=== PATIENT | male | born 1975 | race Native Hawaiian/Other Pacific Islander ===

== ENCOUNTER 2022-01-14 12:16 | Emergency (ER) | payer SELFPAY ==
--- NOTE | 2022-01-14 12:26 | CRLHL7_ITS ---
For Patients: As a result of the Cures Act, medical imaging exams and procedure reports are released immediately into your electronic medical record. You may view this report before your referring provider. If you have questions, please contact your health care provider. HISTORY: Injury. TECHNIQUE: Three views of the right knee. COMPARISON: No prior. FINDINGS: There is no acute fracture. No joint space narrowing. No suprapatellar joint effusion. Mild spurring at the quadriceps attachment to the superior pole of the patella. No radiopaque foreign body or soft tissue gas. IMPRESSION: No fracture, malalignment or joint space narrowing. Dictated by Jan Lewis MD @ 01/14/2022 1:22:30 PM Dictated by: Jan Lewis MD @ 01/14/2022 13:22:33 (Electronically Signed)
[2022-01-14 12:37] VITALS: BP 122/87; PULSE 109; RESP 18; TEMP 36.3; O2SAT 97; BMI 34.9
--- NOTE | 2022-01-14 12:52 | ED.GENADULT ---
HPI - General Adult General Time Seen by Provider: 12:52 Date Seen: 01/14/22 Chief complaint: Back Injury/Pain Stated complaint: Work Comp injured RT knee in fall Time Seen by Provider: 01/14/22 12:25 Source: patient Mode of arrival: ambulatory Limitations: physical limitation History of Present Illness HPI narrative: Patient is a pleasant 38-year-old male who reports that he has had a history of lumbar disc repair in the past. He fell couple days ago work and has pain in his right low back down his leg down to his foot. He has not had any bowel or bladder changes, fever chills, perineal numbness. The patient has been on some type of anti-inflammatory in the past and that helped him. He has been ambulatory. He works at a construction job. He denies significant back pain but complains of pain in his posterior superior iliac spine area down to his leg. He is able ambulate without difficulty. Related Data Home Medications Medication Instructions Recorded Confirmed metformin 500 mg tablet 500 mg PO BID 01/14/22 01/14/22 Previous Rx's Medication Instructions Recorded prednisone 20 mg tablet 20 mg PO BID #10 tabs 01/14/22 Allergies Allergy/AdvReac Type Severity Reaction Status Date / Time No Known Drug Allergies Allergy Verified 01/14/22 12:41 Review of Systems Status of ROS: Reports: 6 or more systems reviewed and unremarkable except as noted in History and below Exam Narrative: Exam Narrative: Objective: Patient has a negative straight leg raise bilaterally, he is ambulatory, is able to heel-toe walk, he walks a slightly flexed position due to his back discomfort. He has got normal strength in the lower extremities bilaterally normal sensation, no palpable tenderness to his low back Const: Vital Signs, click to edit/add: Vital Signs - 24 hr 01/14/22 12:37 Temperature 97.3 F L Pulse Rate [Pulse Oximeter] 109 H Respiratory Rate 18 Blood Pressure [Ri ght Upper Arm] 122/87 Pulse Oximetry 97 Oxygen Delivery Me thod Room Air Course Vital Signs Vital signs: Initial Vital Signs Temperature 97.3 F L 01/14/22 12:37 Temperature Source Temporal Artery Scan 01/14/22 12:37 Pulse Rate 109 H 01/14/22 12:37 Respiratory Rate 18 01/14/22 12:37 Blood Pressure 122/87 01/14/22 12:37 Blood Pressure Mean 98 01/14/22 12:37 Blood Pressure Position Supine 01/14/22 12:37 Pulse Oximetry 97 01/14/22 12:37 Oxygen Delivery Method 01/14/22 12:37 Vital Signs Temperature 97.3 F L 01/14/22 12:37 Pulse Rate 109 H 01/14/22 12:37 Respiratory Rate 18 01/14/22 12:37 Blood Pressure 122/87 01/14/22 12:37 Pulse Oximetry 97 01/14/22 12:37 Oxygen Delivery Method 01/14/22 12:37 Temperature 97.3 F L 01/14/22 12:37 Pulse Rate 109 H 01/14/22 12:37 Respiratory Rate 18 01/14/22 12:37 Blood Pressure 122/87 01/14/22 12:37 Pulse Oximetry 97 01/14/22 12:37 Oxygen Delivery Method 01/14/22 12:37 Medical Decision Making MDM Narrative Medical decision making narrative: Patient does not appear to have any fracture or injury to his back based on his history, but he certainly could have some inflammation of his prior surgery. He may have some radiculitis. A give him a prescription for prednisone 20 b.i.d. will give him prednisone 50 now, will give him morphine 10 mg IM now, off work for 3 days, follow-up with primary care in 2 days. Ice to the low back. Return to ED sooner problems or concerns. Recommend Aleve 2 twice a day for the next 5 days Any x-rays obtained in looks negative by my review because he fell on his knee. Treatment as above Discharge Plan Discharge Clinical Impression: Lumbar radiculopathy Patient Disposition: Home w/ Parent or Adult Condition: Stable Additional Instructions: Light activity, Aleve 2 tablets twice a day for the next 5 days, prednisone 20 mg two times per day for 5 days, light activity as mentioned, ice to the low back, off work for 3 days, follow-up with primary care in the next 2-3 days. Please call [phone] for a follow-up appointment. Return to ED sooner problems or concerns. Actividad ligera, Aleve 2 tabletas dos veces al d?a airam los pr?ximos 5 d?as, prednisona 20 mg dos veces al d?a airam 5 d?as, actividad ligera huber se mencion?, hielo en la parte baja de la espalda, fuera del trabajo airam 3 d?as, seguimiento con atenci?n primaria en los pr?ximos 2-3 d?as. Llame al [phone] para lawrence enrique de seguimiento. Regrese a la dwight de emergencias antes con problemas o inquietudes. Activity Level: Light activity Discharge Diet: Regular Prescriptions: New prednisone 20 mg tablet 20 mg PO BID Qty: 10 0RF No Action metformin 500 mg tablet 500 mg PO BID Stand Alone Forms: [employer] Info Instructions
[2022-01-14] MEDS: predniSONE 10 MG TABLET 50 MG PO (13:27)
[2022-01-14] MEDS: MORPHINE 10 MG/ML inj IM (13:28)
== END 2022-01-14 13:48 | disposition home or self-care (01) ==
PROVIDERS: Emergency Provider Family Medicine
DX: M54.16 Radiculopathy, lumbar region (principal)
CPT/HCPCS: 73562; 96372; 99283; J2270; J7512

== ENCOUNTER 2022-12-21 15:25 | Emergency (ER) | payer OTHER, SELFPAY ==
[2022-12-21] VITALS (17 sets, daily range): BP systolic 120–152; BP diastolic 80–103; PULSE 93–115; RESP 18; TEMP 36.3; O2SAT 93–99; BMI 39.2
--- NOTE | 2022-12-21 16:14 | CRLHL7_ITS ---
For Patients: As a result of the Century Cures Act, medical imaging exams and procedure reports are released immediately into your electronic medical record. You may view this report before your referring provider. If you have questions, please contact your health care provider. INDICATION: Chest pain. COMPARISON: 06/15/2021. TECHNIQUE: Chest 2 views. FINDINGS: Lungs are clear. No pleural effusions. No pneumothorax. No focal passes. Normal heart size. No osseous abnormalities. Dictated by Wesley Alvarenga MD @ 12/21/2022 5:50:49 PM (Electronically Signed)
--- NOTE | 2022-12-21 16:42 | ED_ITS ---
HPI - Chest Pain General Date Seen: 12/21/22 Chief Complaint: Chest Pain Stated Complaint: chest pain, headache, tired eyes Time Seen by Provider: 12/21/22 15:56 Source: patient and [employer] Mode of arrival: ambulatory Limitations: no limitations History of Present Illness HPI narrative: Patient is a 47-year-old male presenting to emergency department for shortness of breath. Has no pertinent medical issues other than diabetes and hyperlipidemia. States this morning he woke up with chest pain around 230. Says as he moved around the chest pain got worse. Try to tough it out but the symptoms have not been going away. He has been taking Tylenol for the pain without improvement in his symptoms. He has never had symptoms like this before. Does state he has been having a cough and a headache. His son has also had cold symptoms this morning. No family history of heart disease before the age of 55. He has the occasional smoker. Denies shortness of breath, history of blood clots, weakness, numbness, lightheadedness, dizziness, abdominal pain, nausea. Related Data Home Medications Medication Instructions Recorded Confirmed metformin 500 mg tablet 500 mg PO BID 01/14/22 12/21/22 Previous Rx's Medication Instructions Recorded prednisone 20 mg tablet 20 mg PO BID #10 tabs 01/14/22 nirmatrelvir 300 mg (150 mg See Rx Instructions PO .COMPLEX 12/21/22 x2)-ritonavir 100 mg tablet,dose #30 ea pack (Paxlovid) Allergies Allergy/AdvReac Type Severity Reaction Status Date / Time No Known Drug Allergies Allergy Verified 01/14/22 12:41 Review of Systems Status of ROS Reports: 10 or more systems reviewed and unremarkable except as noted in History and below PFSH PFS Social History Smoking Status: Never smoker Do you use any of these nicotine containing products: None Second hand tobacco smoke exposure: No How often do you have a drink containing alcohol: never How often do you have six or more drinks on one occasion: Never AUDIT-C Alcohol total score: 0 Non-prescribed substance use: marijuana (any form) Exam Narrative Exam Narrative: Const: Well-nourished, Well-developed, in mild distress Eyes: PERRL, no conjunctival injection, and symmetrical lids HENT: Atraumatic external nose and ears. Moist mucous membranes. Neck: Symmetric, trachea midline, No thyromegaly. CVS: RRR, No murmurs or gallops. Peripheral pulses 2+ and equal in all extremities RESP: Unlabored respiratory effort. Clear to auscultation bilaterally. GI: Nontender/Nondistended, No rebound or guarding. MSK:Extremities w/o deformity, Normal Active ROM Skin: Warm, Dry. No rashes or lesions. Neuro: Normal Muscle tone, No focal neurological deficits. Psych: Awake, Alert, & Oriented x3. Appropriate mood and affect. Const Vital Signs, click to edit/add: Vital Signs - 24 hr 12/21/22 15:32 12/21/22 17:13 12/21/22 17:15 Temperature 97.4 F L Pulse Rate 104 H 105 H Pulse Rate [Right Pulse Oximeter] 115 H Respiratory Rate 18 Blood Pressure Blood Pressure [Right Upper Arm] 144/80 H Pulse Oximetry 99 96 94 Oxygen Delivery Method Room Air 12/21/22 17:30 12/21/22 17:32 12/21/22 17:45 Temperature Pulse Rate 103 H 102 H 101 H Pulse Rate [Right Pulse Oximeter] Respiratory Rate Blood Pressure 152/103 H Blood Pressure [Right Upper Arm] Pulse Oximetry 96 95 97 Oxygen Delivery Method 12/21/22 17:54 12/21/22 18:00 12/21/22 18:02 Temperature Pulse Rate 100 97 99 Pulse Rate [Right Pulse Oximeter] Respiratory Rate Blood Pressure 151/91 H 120/90 H Blood Pressure [Right Upper Arm] Pulse Oximetry 98 97 98 Oxygen Delivery Method 12/21/22 18:11 12/21/22 18:12 12/21/22 18:15 Temperature Pulse Rate 98 98 98 Pulse Rate [Right Pulse Oximeter] Respiratory Rate Blood Pressure 131/83 Blood Pressure [Right Upper Arm] Pulse Oximetry 95 96 93 Oxygen Delivery Method 12/21/22 18:30 12/21/22 18:32 12/21/22 18:45 Temperature Pulse Rate 93 97 95 Pulse Rate [Right Pulse Oximeter] Respiratory Rate Blood Pressure 135/81 Blood Pressure [Right Upper Arm] Pulse Oximetry 97 95 99 Oxygen Delivery Method Course Vital Signs Vital signs: Initial Vital Signs Temperature 97.4 F L 12/21/22 15:32 Temperature Source Temporal Artery Scan 12/21/22 15:32 Pulse Rate 115 H 11/10/23 15:32 Respiratory Rate 18 12/21/22 15:32 Blood Pressure 144/80 H 12/21/22 15:32 Blood Pressure Mean 101 12/21/22 15:32 Blood Pressure Position Sitting 12/21/22 15:32 Pulse Oximetry 99 12/21/22 15:32 Oxygen Delivery Method Room Air 12/21/22 15:32 Vital Signs Temperature 97.4 F L 12/21/22 15:32 Pulse Rate 115 H 12/21/22 15:32 Respiratory Rate 18 12/21/22 15:32 Blood Pressure 144/80 H 12/21/22 15:32 Pulse Oximetry 99 12/21/22 15:32 Oxygen Delivery Method Room Air 12/21/22 15:32 Temperature 97.4 F L 12/21/22 15:32 Pulse Rate 95 12/21/22 18:45 Respiratory Rate 18 12/21/22 15:32 Blood Pressure 135/81 12/21/22 18:32 Pulse Oximetry 99 12/21/22 18:45 Oxygen Delivery Method Room Air 12/21/22 15:32 Medications Administered Medications: Discontinued Medications Generic Name Dose Route Start Last Admin Trade Name Freq PRN Reason Stop Dose Admin Sodium Chloride 1,000 mls @ 1,000 mls/hr 12/21/22 16:15 12/21/22 18:15 0.9 % Sodium Chloride 1000 Ml IV 12/21/22 17:14 Infused .Q1H VIJAY Infusion Ketorolac Tromethamine 15 mg 12/21/22 16:14 12/21/22 16:45 Ketorolac 15 Mg/Ml Inj IVP 12/21/22 16:15 15 mg ONCE ONE Administration MDM - Chest Pain MDM Narrative Medical decision making narrative: Patient is a 47-year-old male presents to emergency department for chest pain. Symptoms started this morning and been consistent. Says is a dull pain. Never had symptoms like this before. No concerning family history of heart disease but he does have risk factors for it. No history of blood clots no known risk factors at this time. He is tachycardic though so cannot be PERCed out. D- dimer ordered. We ordered chest x-ray to look for signs of pneumonia or pneumothorax. Seems unlikely to be aortic dissection this time concern is otherwise stable appearance. Order lab work to poorly signs of infection or electrolyte abnormalities. COVID and flu also ordered. Troponin EKG ordered for signs ACS. EKG shows sinus tachycardia. Troponin within normal limits. Cbc and CMP showed no concerning abnormalities. Blood sugar slightly elevated at 234 but he is a known diabetic. He is COVID positive. This likely the cause of his symptoms. Chest x-ray shows no acute abnormalities. He was given a L of fluids and his heart rate improved from 115 to 95. Patient is doing well at this time will be discharged on Paxlovid. He is agreeable to this plan. Lab Data Labs: Lab Results 12/21/22 12/21/22 Range/Units 16:20 17:05 WBC 6.98 (4.50-11.00) K/uL RBC 5.25 (4.30-5.90) m/uL Hgb 14.8 (13.5-17.5) gm/dL Hct 43.5 (37.0-53.0) % MCV 83 (80-100) fL MCH 28 (26-34) pg MCHC 34 (32-36) gm/dL RDW Coeff of Zev 12.6 (11.5-15.5) % Plt Count 212 (140-440) K/uL Neut % (Auto) 73.9 H (42.0-72.0) % Lymph % (Auto) 14.9 L (20-44) % [place] % (Auto) 8.0 (0.0-11.0) % Eos % (Auto) 2.4 (0.0-7.0) % Baso % (Auto) 0.4 (0.0-3.0) % Neut # (Auto) 5.20 (1.7-7.0) K/uL Lymph # (Auto) 1.00 (0.90-2.90) K/uL [place] # (Auto) 0.60 (0.00-0.90) K/UL Eos # (Auto) 0.17 (0.00-0.50) K/uL Baso # (Auto) 0.03 (0.00-0.30) K/uL Abs Immat Gran (auto) 0.03 (0.00-0.30) K/uL Imm/Tot Granulo (auto) 0.4 % D-Dimer Quant (PE/DVT) 0.42 (0.00-0.50) ug/ml Sodium 135 (135-149) mmol/L Potassium 3.6 (3.6-5.1) mmol/L Chloride 98 (96-114) mmol/L Carbon Dioxide 25 (20-32) mmol/L Anion Gap 12 (7-15) mEq/L BUN 14 (5-24) mg/dL Creatinine 0.7 (0.5-1.5) mg/dL Estimated Creat Clear 123.50 Estimated GFR 113 ml/min Glucose 234 H (60-115) mg/dL Calcium 9.4 (8.4-10.6) mg/dL Magnesium 2.1 (1.5-2.6) mg/dL Total Bilirubin 0.3 (0.1-1.5) mg/dL AST 49 H (12-35) U/L ALT 51 H (4-50) U/L Alkaline Phosphatase 81 (40-150) U/L Troponin I < 0.01 L (0.01-0.04) ng/mL Total Protein 8.2 (6.0-8.3) g/dL Albumin 4.6 (3.3-5.0) g/dL SARS-CoV-2 (PCR) POSITIVE SARS-CoV-2 A (Negative) Influenza Type A (PCR) Negative PCR FLU A (Negative) Influenza Type B (PCR) Negative PCR FLU B (Negative) Imaging Data Chest x-ray: Radiologist's impression: Lungs are clear. No pleural effusions. No pneumothorax. No focal passes. Normal heart size. No osseous abnormalities. Dictated by Wesley Alvarenga MD @ 12/21/2022 5:50:49 PM ECG Data Attestation: I personally reviewed and interpreted this ECG as follows: Prior ECG tracings: not available for review Interpretation: Sinus tachycardia rate 110 beats per minute, normal intervals, normal axis, no ST or T-wave abnormalities Discharge Plan Discharge Clinical Impression: COVID Patient Disposition: Home, Self-Care Condition: Stable Instructions: COVID-19 (Coronavirus Disease 2019) (ED) Additional Instructions: Take the Paxil of it as directed. Quarantine for 5 days from onset of symptoms in 72 hours without fever Prescriptions: New Paxlovid 300 mg (150 mg x 2)-100 mg tablets,dose pack See Rx Instructions .ROUTE .COMPLEX Qty: 30 0RF Rx Instructions: take TWO 150 mg tablets of nirmatrelvir with ONE 100 mg tablet of ritonavir twice daily for 5 days No Action metformin 500 mg tablet 500 mg PO BID prednisone 20 mg tablet 20 mg PO BID Qty: 10 0RF Follow Up/Referrals: Provider,Not a Local [Primary Care Provider] - Stand Alone Forms: [employer]able Info Instructions
[2022-12-21] MEDS: 0.9 % SODIUM CHLORIDE 1000 ml 1,000 ML IV (16:45)
[2022-12-21] MEDS: KETOROLAC 15 MG/ML inj IVP (16:45)
[2022-12-21 17:15] LABS: PCR FLU A Negative PCR FLU A (Negative); PCR FLU B Negative PCR FLU B (Negative)
[2022-12-21 17:22] LABS: SARS PCR* POSITIVE SARS-CoV-2 (Negative)
[2022-12-21 17:27] LABS: Basophils Absolute Auto 0.03 K/uL (0.00-0.30); Basophils Percent Auto 0.4 % (0.0-3.0); Eosinophils Absolute Auto 0.17 K/uL (0.00-0.50); Eosinophils Percent Auto 2.4 % (0.0-7.0); Hematocrit 43.5 % (37.0-53.0); Hemoglobin* 14.8 gm/dL (13.5-17.5); Immature Granulocytes Abs Auto 0.03 K/uL (0.00-0.30); Immature Granulocytes Pct Auto 0.4 %; Lymphocytes Percent Auto 14.9 % (20-44); Mean Corpuscular HGB Conc 34 gm/dL (32-36); Mean Corpuscular Hemoglobin 28 pg (26-34); Mean Corpuscular Volume 83 fL (80-100); Neutrophils Percent Auto 73.9 % (42.0-72.0); Platelet Count* 212 K/uL (140-440); RDW Coefficient of Variation % 12.6 % (11.5-15.5); Red Blood Count 5.25 m/uL (4.30-5.90); White Blood Count* 6.98 K/uL (4.50-11.00)
[2022-12-21 17:39] LABS: Albumin* 4.6 g/dL (3.3-5.0); Chloride* 98 mmol/L (96-114); D Dimer Quantitative* 0.42 ug/ml (0.00-0.50); Potassium* 3.6 mmol/L (3.6-5.1); Sodium* 135 mmol/L (135-149)
[2022-12-21 17:41] LABS: Bilirubin Total* 0.3 mg/dL (0.1-1.5); Creatinine* 0.7 mg/dL (0.5-1.5); Estimated Glomerular Filt Rate 113 ml/min
[2022-12-21 17:42] LABS: Alanine Aminotransferase* 51 U/L (4-50); Alkaline Phosphatase* 81 U/L (40-150); Anion Gap 12 mEq/L (7-15); Aspartate Amino Transferase* 49 U/L (12-35); Blood Urea Nitrogen* 14 mg/dL (5-24); Carbon Dioxide* 25 mmol/L (20-32); Glucose* 234 mg/dL (60-115); Total Protein* 8.2 g/dL (6.0-8.3)
[2022-12-21 17:43] LABS: Calcium* 9.4 mg/dL (8.4-10.6); Magnesium* 2.1 mg/dL (1.5-2.6)
[2022-12-21 18:12] LABS: Slide Review Reflex No
[2022-12-21 18:39] LABS: Troponin I* < 0.01 ng/mL (0.01-0.04)
== END 2022-12-21 19:19 | disposition home or self-care (01) ==
PROVIDERS: Emergency Provider Student in an Organized Health Care Education/Training Program
DX: U07.1 COVID-19 (principal)
CPT/HCPCS: 36415; 71046; 80053; 83735; 84484; 85025; 85379; 87631; 93005; 96361; 96374; 99283; 99284; 99285; T1013; J1885; J7030

== ENCOUNTER 2023-12-19 08:56 | Outpatient (CLI) | payer BC, SELFPAY | END 2023-12-19 08:57 | disposition home or self-care (01) | LOC: NFLDREF 12-23 20:27 | PROVIDERS: PCP Family Medicine; Referring Provider Family Medicine; Visit Provider Family Medicine | DX: E11.65 Type 2 diabetes mellitus with hyperglycemia (principal); Z12.5 Encounter for screening for malignant neoplasm of prostate; Z13.220 Encounter for screening for lipoid disorders | CPT/HCPCS: 80053; 80061; 82043; 82570; G0103 ==